=== PATIENT | male | born 1940 | race Caucasian/White ===

== ENCOUNTER 2016-12-28 09:33 | Emergency (ER) | payer MEDICARE, OTHER ==
--- NOTE | 2016-12-28 09:55 | ED Physician Documentation ---
PD HPI CHEST PAIN - Stated complaint Stated Complaint: WEAKNESS/CHEST PRESSURE - Chief complaint Chief Complaint: Cardiac - History obtained from History obtained from: Patient - History of Present Illness Timing - onset: Yesterday Timing - onset during: Light activity Timing - duration: Days (08/08) Timing - details: Gradual onset, Still present, Waxing and waning Quality: Pressure, Tightness, Aching Location: Left chest Radiation: Left upper extremity Improved by: No: Rest Worsened by: Exertion. No: Inspiration, Movement Associated symptoms: Shortness of air, General Weakness, Other (sinus congestion for few days. Had been working in garden/yard and thought he was just sore.). No: Nausea, Vomiting, Palpitations, Cough Similar symptoms before: Has not had sx before Recently seen: Not recently seen Review of Systems Constitutional: denies: Fever, Chills Nose: reports: Congestion, Sinus pressure / pain Throat: denies: Sore throat Cardiac: reports: Chest pain / pressure. denies: Palpitations, Pedal edema, Calf pain Respiratory: reports: Dyspnea. denies: Cough, Wheezing GI: denies: Nausea, Vomiting, Diarrhea : denies: Dysuria, Frequency Musculoskeletal: denies: Joint swelling PD PAST MEDICAL HISTORY - Past Medical History Past Medical History: Yes Cardiovascular: Hypertension, High cholesterol Respiratory: None Neuro: None Endocrine/Autoimmune: None Psych: None Musculoskeletal: None - Past Surgical History Past Surgical History: Yes Ortho: Spine surgery - Present Medications Home Medications: Ambulatory Orders Medication Instructions Recorded Confirmed Fluticasone [Flonase] 1 spray FISH DAILY PRN 03/12/16 12/28/16 Lisinopril 10 mg PO DAILY 03/12/16 12/28/16 - Allergies Allergies/Adverse Reactions: Allergies Allergy/AdvReac Type Severity Reaction Status Date / Time No Known Drug Allergies Allergy Verified 12/28/16 09:50 - Social History Does the pt smoke?: No Smoking Status: Never smoker Does the pt drink ETOH?: Yes Does the pt have substance abuse?: No - Family History Family history: reports: Non contributory - Immunizations Immunizations are current?: Yes PD ED PE NORMAL - Vitals Vital signs reviewed: Yes - General General: Alert and oriented X 3, Well developed/nourished - HEENT HEENT: Ears normal, Pharynx benign - Neck Neck: Supple, no meningeal sign, No adenopathy - Cardiac Cardiac: RRR, No murmur - Respiratory Respiratory: Clear bilaterally, Other (no chestwall tenderness) - Abdomen Abdomen: Normal bowel sounds, Soft, Non tender, Non distended, No organomegaly - Male Male : Deferred - Rectal Rectal: Deferred - Back Back: No CVA TTP - Derm Derm: Normal color, Warm and dry - Extremities Extremities: No deformity, No edema, No calf tenderness / cord - Neuro Neuro: Alert and oriented X 3, No motor deficit, Normal speech - Psych Psych: Normal mood, Normal affect Results - Vitals Vitals: Vital Signs - 24 hr 12/28/16 12/28/16 12/28/16 09:35 10:51 11:33 Temperature 36.3 C L Heart Rate 74 70 83 Respiratory 18 20 18 Rate Blood Pressure 181/93 H 164/90 H 172/95 H O2 Saturation 96 95 100 12/28/16 12/28/16 11:39 11:45 Temperature Heart Rate 76 64 Respiratory 18 18 Rate Blood Pressure 186/98 H 162/95 H O2 Saturation 96 98 Oxygen O2 Source Room air - EKG (time done) 09:45 Rate: Rate (enter#) (70) Rhythm: NSR [place]: Normal Intervals: Normal [place] Ischemia: Non specific changes. No: ST depression Compare to prior EKG: Old EKG unavailable - Labs Labs: Laboratory Tests 12/28/16 12/28/16 12/28/16 10:45 10:45 10:45 WBC 13.4 H RBC 5.30 Hgb 16.1 Hct 46.2 MCV 87.1 MCH 30.5 MCHC 35.0 RDW 13.8 Plt Count 183 MPV 8.5 Neut # 11.4 H Lymph # 1.1 L Gibson # 0.8 Eos # 0.0 Baso # 0.0 Absolute Nucleated RBC 0.00 Nucleated RBCs 0.0 Sodium 137 Potassium 4.0 Chloride 102 Carbon Dioxide 26 Anion Gap 9.0 BUN 17 Creatinine 1.0 Estimated GFR (MDRD) 72 L Glucose 156 H Calcium 9.7 Magnesium 2.2 Total Bilirubin 1.4 H AST 118 H ALT 33 Alkaline Phosphatase 67 Troponin I 12.86 H* B-Natriuretic Peptide Total Protein 7.8 Albumin 4.4 Globulin 3.4 Albumin/Globulin Ratio 1.3 Lipase 33 12/28/16 10:45 WBC RBC Hgb Hct MCV MCH MCHC RDW Plt Count MPV Neut # Lymph # Gibson # Eos # Baso # Absolute Nucleated RBC Nucleated RBCs Sodium Potassium Chloride Carbon Dioxide Anion Gap BUN Creatinine Estimated GFR (MDRD) Glucose Calcium Magnesium Total Bilirubin AST ALT Alkaline Phosphatase Troponin I B-Natriuretic Peptide 169 H Total Protein Albumin Globulin Albumin/Globulin Ratio Lipase PD MEDICAL DECISION MAKING - ED course Complexity details: reviewed results, re-evaluated patient, considered differential, d/w patient, d/w production support consultant (Dr. Jones, Cardiology, who will cath patient later today. Refers to Hospitalist. ) Departure - Departure Disposition: 02 Transfer Acute Care Hosp Clinical Impression: Chest pain Qualifiers: Chest pain type: precordial pain Qualified Code(s): R07.2 - Precordial pain Myocardial infarction acute Qualifiers: Myocardial infarction ST status: non-ST elevation myocardial infarction Qualified Code(s): I21.4 - Non-ST elevation (NSTEMI) myocardial infarction Condition: Stable Record reviewed to determine appropriate education?: Yes
[2016-12-28 10:53] LABS: BASOPHILS % (AUTO) 0.3 %; EOSINOPHILS % (AUTO) 0.2 %; HCT - HEMATOCRIT 46.2 % (42.0-52.0); HGB - HEMOGLOBIN 16.1 g/dL (14.0-18.0); LYMPHOCYTES # (AUTO) 1.1 10^3/uL (1.5-3.5); LYMPHOCYTES % (AUTO) 8.4 %; MEAN CORPUSCULAR HEMOGLOBIN 30.5 pg (27.0-31.0); MEAN CORPUSCULAR VOLUME 87.1 fL (80.0-94.0); MEAN PLATELET VOLUME 8.5 fL (7.4-11.4); MONOCYTES # (AUTO) 0.8 10^3/uL (0.0-1.0); MONOCYTES % (AUTO) 5.8 %; NEUTROPHILS # (AUTO) 11.4 10^3/uL (1.5-6.6); NEUTROPHILS % (AUTO) 85.3 %; RED CELL DISTRIBUTION WIDTH 13.8 % (12.0-15.0); UNCORRECTED WHITE BLOOD COUNT 13.4 x10^3/uL; WHITE BLOOD COUNT 13.4 x10^3/uL (4.8-10.8)
[2016-12-28 11:07] LABS: ALBUMIN/GLOBULIN RATIO 1.3 (1.0-2.2); BILIRUBIN,TOTAL 1.4 mg/dL (0.2-1.0); CALCIUM 9.7 mg/dL (8.5-10.3); MAGNESIUM 2.2 mg/dL (1.7-2.8); TOTAL PROTEIN 7.8 g/dL (6.7-8.2)
[2016-12-28] MEDS ORDERED: CLOPIDOGREL 300 MG TABLET PO STA (11:22)
[2016-12-28] MEDS ORDERED: METOPROLOL 5 MG/5 ML VIAL IVP STA (11:22)
[2016-12-28] MEDS ORDERED: ASPIRIN CHEW 81 MG TABLET PO STA (11:23)
[2016-12-28] MEDS ORDERED: ASPIRIN CHEW 81 MG TABLET ONE (11:26)
[2016-12-28] MEDS ORDERED: METOPROLOL 5 MG/5 ML VIAL IVP ONE (11:28)
[2016-12-28] MEDS ORDERED: CLOPIDOGREL 300 MG TABLET PO ONE (11:28)
--- NOTE | 2016-12-28 11:38 | XRAY Preliminary Report ---
Exam: XR Chest 2 View PA/LAT IMPRESSION: Normal 2-view chest radiography. [facility] SITE ID: [id number]
--- NOTE | 2016-12-28 11:41 | XRAY Report ---
EXAM: CHEST RADIOGRAPHY EXAM DATE: 12/28/2016 10:36 AM. CLINICAL HISTORY: Left chest pressure, mild cough. Intermittent shortness of breath. COMPARISON: None. TECHNIQUE: 2 views. FINDINGS: Lungs/Pleura: No focal opacities evident. No pleural effusion. No pneumothorax. Normal volumes. Mediastinum: Heart and mediastinal contours are unremarkable. Other: None. IMPRESSION: Normal 2-view chest radiography. [facility] Referring Provider Line: [phone] SITE ID: [id number]
[2016-12-28] MEDS ORDERED: ATORVASTATIN 40 MG TABLET PO STA (11:48)
[2016-12-28] MEDS ORDERED: HEPARIN 25,000 UNITS/500 ML 500 ML IV STA (11:49)
[2016-12-28] MEDS ORDERED: HEPARIN 5,000 UNIT/ML VIAL IVP STA (11:49)
[2016-12-28] MEDS ORDERED: HEPARIN 5,000 UNIT/ML VIAL ONE (11:52)
[2016-12-28] MEDS ORDERED: HEPARIN 25,000 UNITS/500 ML 500 ML IV ONE (11:52)
[2016-12-28 13:50] VITALS: BP 156/87
== END 2016-12-28 14:10 | disposition short-term general hospital (02) ==
LOC: ED 09:33
DX: I21.4 Non-ST elevation (NSTEMI) myocardial infarction (principal); R07.2 Precordial pain; I10 Essential (primary) hypertension; E78.00 Pure hypercholesterolemia, unspecified
CPT/HCPCS: 36415; 71020; 80053; 83690; 83735; 83880; 84484; 85025; 93005; 93010; 96365; 96366; 96375; 96376; 99284; A9270

== ENCOUNTER 2016-12-28 14:10 | Outpatient (CLI) | payer MEDICARE, OTHER | END 2016-12-28 14:11 | disposition short-term general hospital (02) | LOC: EMS 14:10 | PROVIDERS: ATTEND Surgery | DX: R07.9 Chest pain, unspecified (principal) | CPT/HCPCS: A0425; A0426 ==

== ENCOUNTER 2018-10-09 07:45 | Outpatient (CLI) | payer MEDICARE, OTHER ==
[2018-10-09 14:36] LABS: BASOPHILS % (AUTO) 0.4 %; EOSINOPHILS # (AUTO) 0.1 10^3/uL (0.0-0.7); EOSINOPHILS % (AUTO) 1.9 %; HGB - HEMOGLOBIN 12.9 g/dL (14.0-18.0); LYMPHOCYTES # (AUTO) 1.4 10^3/uL (1.5-3.5); LYMPHOCYTES % (AUTO) 20.6 %; MEAN CORPUSCULAR HEMOGLOBIN 26.7 pg (27.0-31.0); MEAN CORPUSCULAR VOLUME 80.9 fL (80.0-94.0); MONOCYTES # (AUTO) 0.8 10^3/uL (0.0-1.0); MONOCYTES % (AUTO) 11.1 %; NEUTROPHILS # (AUTO) 4.6 10^3/uL (1.5-6.6); PLT - PLATELET COUNT 158 10^3/uL (130-450); RED BLOOD COUNT 4.81 10^6/uL (4.70-6.10); RED CELL DISTRIBUTION WIDTH 15.9 % (12.0-15.0)
[2018-10-09 16:48] LABS: ALBUMIN/GLOBULIN RATIO 1.3 (1.0-2.2); ALKALINE PHOSPHATASE 63 IU/L (42-121); ALT ALANINE AMINOTRANSFERASE 26 IU/L (10-60); AST ASPARTATE AMINOTRANSFERASE 29 IU/L (10-42); BILIRUBIN,TOTAL 1.6 mg/dL (0.2-1.0); BUN - BLOOD UREA NITROGEN 18 mg/dL (6-20); CALCIUM 9.3 mg/dL (8.5-10.3); CARBON DIOXIDE - CO2 28 mmol/L (21-32); CHLORIDE 105 mmol/L (101-111); CHOL/HDL RATIO 2.7 (<5.0); CHOLESTEROL 72 mg/dL; CREATININE 1.1 mg/dL (0.6-1.2); GFR - MDRD 65 (>89); GLUCOSE 96 mg/dL (70-100); HDL CHOLESTEROL 27 mg/dL; LDL CHOLESTEROL,CALCULATED 26 mg/dL; SODIUM 139 mmol/L (135-145); TOTAL PROTEIN 7.1 g/dL (6.7-8.2); VLDL CHOLESTEROL 19 mg/dL
== END 2018-10-09 07:46 | disposition home or self-care (01) ==
LOC: LAB.WCP 07:45
PROVIDERS: ATTEND Family Medicine
DX: I10 Essential (primary) hypertension (principal)
CPT/HCPCS: 36415; 80053; 80061; 83721; 84443; 85025

== ENCOUNTER 2019-10-10 08:35 | Day surgery (SDC) | payer MEDICARE, OTHER ==
[~2019-10-10 08:35] MED LIST: BRIMONIDINE 0.2% OPHTH DROPS 5 ML ONE; BSS/LIDOCAINE/EPINEPHRINE 1 ML SYRINGE ONE; CYCLOPENTOLATE 1% OPHTH DROPS 2 ML ONE; KETOROLAC 0.45% OPHTH DROPS ONE; PHENYLEPHRINE 2.5% OPHTH 2 ML DROPS ONE; PROPARACAINE 0.5% OPHTH DROPS 15 ML ONE; TRIAMCIN/MOXIFLOX OPHTHALMIC 0.6 ML VIAL IO ONE; VANCOMYCIN OPHTHALMI 8MG/0.8ML 8 MG/0.8 ML SYRINGE IO ONE; timoloL maleate 0.5% OPHTH DROPS (10ML) ONE
[2019-10-10] MEDS ORDERED: MIDAZOLAM 2 MG/2 ML VIAL IVP ONE (08:36)
[2019-10-10] MEDS ORDERED: CYCLOPENTOLATE 1% OPHTH DROPS 2 ML RIGHTEYE ONE (09:00)
[2019-10-10] MEDS ORDERED: PROPARACAINE 0.5% OPHTH DROPS 15 ML RIGHTEYE ONE ×2 (09:00→10:20)
[2019-10-10] MEDS ORDERED: KETOROLAC 0.45% OPHTH DROPS RIGHTEYE ONE (09:00)
[2019-10-10] MEDS ORDERED: PHENYLEPHRINE 2.5% OPHTH 2 ML DROPS RIGHTEYE ONE (09:00)
[2019-10-10] MEDS ORDERED: LACTATED RINGERS 500 ML IV ONE (09:11)
--- NOTE | 2019-10-10 09:23 | ANESTHESIA ---
Pre-Anesthesia VS, & Labs - Diagnosis right eye cataract - Procedure right eye cataract removal Vital Signs: Temp Pulse Resp BP Pulse Ox 36.2 C L 58 L 16 156/70 H 100 10/10/19 08:50 10/10/19 08:50 10/10/19 08:50 10/10/19 08:50 10/10/19 08:50 Height 6 ft Weight (kg) 106 kg Body Mass Index 31.1 Home Medications and Allergies Home Medications: Ambulatory Orders Aspirin [Children's Aspirin] 81 mg PO DAILY 10/09/19 Atorvastatin [Lipitor] 10 mg PO DAILY 10/09/19 Carvedilol 12.5 mg PO DAILY 10/09/19 Tamsulosin [Flomax] 0.4 mg PO DAILY 10/09/19 Fluticasone [Flonase] 1 spray FISH DAILY PRN 03/12/16 lisinopriL [Lisinopril] 40 mg PO DAILY 03/12/16 Aspirin [Children's Aspirin] 81 mg PO DAILY 10/09/19 Atorvastatin [Lipitor] 10 mg PO DAILY 10/09/19 Carvedilol 12.5 mg PO DAILY 10/09/19 Tamsulosin [Flomax] 0.4 mg PO DAILY 10/09/19 Allergies/Adverse Reactions: Allergies Allergy/AdvReac Type Severity Reaction Status Date / Time No Known Drug Allergies Allergy Verified 12/28/16 09:50 Anes History & Medical History - Anesthetic History Anesthesia Complications: reports: No previous complications Family history of Anesthesia Complications: Denies Family history of Malignant Hyperthermia: Denies - Medical History Cardiovascular: reports: Hypertension, High cholesterol, [place] (mild heart attack 3 years ago.) Pulmonary: reports: Sleep apnea, CPAP use Gastrointestinal: reports: None Urinary: reports: Benign prostate hypertrophy Neuro: reports: None Musculoskeletal: reports: Osteoarthritis Endocrine/Autoimmune: reports: None Blood Disorders: reports: None Skin: reports: Other Smoking Status: Never smoker Psychosocial: reports: No issues indicated, Alcohol (occassional) - Surgical History Orthopedic: Spine surgery Exam General: Alert, Oriented x3, Cooperative, No acute distress Dental: WNL Mouth Openin Fingerbreadth Mallampati classification: II Thyromental Distance: 4-6 cm Respiratory: Lungs clear, Normal breath sounds, No respiratory distress, No accessory muscle use Cardiovascular: Regular rate, Normal S1, Normal S2, No murmurs Abdomen: Normal bowel sounds, Soft, No tenderness, No hepatospenomegaly, No masses Extremities: No clubbing, No cyanosis, No edema, Normal pulses, No tenderness/swelling Neurological: Normal gait, Normal speech, Strength at 5/5 X4 ext, Normal tone, Sensation intact, Cranial nerves 3-12 NL, Reflexes 2+ Mental/Cognitive Status: Alert/Oriented X3, Normal for patient Cognitive Status: Within normal limits Plan Anesthesia Type: MAC Consent for Procedure(s) Verified and Reviewed: Yes Code Status: Attempt Resuscitation ASA classification: 3-Severe systemic disease Is this case an emergency?: No
[2019-10-10] MEDS ORDERED: BRIMONIDINE 0.2% OPHTH DROPS 5 ML OPTH ONE (10:19)
[2019-10-10] MEDS ORDERED: EPINEPHrine 1 MG/ML AMP IVP ONE (10:19)
[2019-10-10] MEDS ORDERED: TIMOLOL 0.5% OPHTH DROPS OPTH ONE (10:20)
[2019-10-10] MEDS ORDERED: BSS/LIDOCAINE/EPINEPHRINE 1 ML SYRINGE IO ONE (10:20)
[2019-10-10] MEDS ORDERED: CHONDR SULF/HYALURONATE SYRINGE IO ONE (10:20)
[2019-10-10] MEDS ORDERED: TRIAMCIN/MOXIFLOX OPHTHALMIC 0.6 ML VIAL IO ONE (10:21)
[2019-10-10] MEDS ORDERED: VANCOMYCIN OPHTHALMI 8MG/0.8ML 8 MG/0.8 ML SYRINGE IO ONE (10:21)
[2019-10-10 11:02] VITALS: BP 138/66
--- NOTE | 2019-10-10 11:49 | OPERATIVE REPORT ---
DATE OF SERVICE: 10/10/2019 Physician: Bony Mccullough MD PREOPERATIVE DIAGNOSIS: Visually significant cataract, right eye. This was his first cataract surgery. POSTOPERATIVE DIAGNOSIS: Visually significant cataract, right eye. This was his first cataract surgery. DESCRIPTION OF PROCEDURE: Phacoemulsification with posterior chamber intraocular lens implant, right eye. SURGEON: Bony Mccullough MD ANESTHESIA: Monitored anesthesia care. COMPLICATIONS: None. OPERATIVE INDICATIONS: This is an 78-year-old man with progressive vision loss in the right eye due to 3-4+ nuclear sclerotic cataract. Best corrected visual acuity was 20/30, with glare to 20/630. Indications for surgery are overall decrease in vision, difficulty driving in low light or at night, difficulty driving at night because of headlights from other vehicles, and difficulty with glare or bright lights in any situation. He was consented at length concerning risks and benefits of cataract surgery, after which he expressed a desire to proceed with surgery. OPERATIVE PROCEDURE: The patient was taken to OR #3 and placed under monitored anesthesia care. A surgical timeout was conducted confirming correct patient, correct procedure, and correct surgical site. He was given topical anesthesia, and prepped and draped in the usual sterile fashion. The eye was entered at the 12 and 9 o'clock positions. Intracameral Shugarcaine was injected into the anterior chamber, followed by Viscoat. A continuous-tear curvilinear capsulorrhexis was performed. The nucleus was hydrodissected and phacoemulsified. The cortex was evacuated using automated infusion and aspiration; however, there was some rather thick and rather sticky inferior cortex, which I had a lot of difficulty pulling off the capsule. I actually switched back to phaco to try to remove some of that cortex, which I did, and then back to Infusion and Aspiration. Provisc was injected in the capsular bag and a 26.0 diopter intraocular lens inserted in the bag. However, once the IOL was in the bag, it seemed to keep wanting to tilt nasally, not inferiorly, and after a couple times manipulating the IOL I noticed that there was a rather large nasal loss of the posterior capsule with the capsule edge sort of running superior to inferior through the middle of the capsule. The IOL looked like it could still find purchase, so I rotated it about 90 degrees until I found purchase for the haptics. The lens did center and did appear to be stable, not tilting, and there was no vitreous that I could see coming to the wound or in to the anterior chamber. I decided to leave the IOL in placeas rather than put the eye through the trauma of cutting the IOL out and inserting a sulcus IOL. Infusion and Aspiration was used to evacuate the viscoelastic material from the anterior chamber. Again, no vitreous presented. The eye was inflated to physiologic pressure using balanced salt solution and found to be watertight. Approximately 0.25 mL of a mixture of triamcinolone, moxifloxacin was injected transsclerally into the vitreous in the inferotemporal quadrant. An additional 0.55 mL of a mixture of triamcinolone, moxifloxacin and vancomycin was injected subconjunctivally in the superior quadrant for infection and inflammation prophylaxis. Wound integrity was checked with Weck-Sheila sponges. The patient was taken from the operating room in good condition and given postoperative instructions. I did inform him of the possibility of an unstable IOL in his eye, what that might mean (more surgery), and he understood. TD: 10/10/2019 10:52 DAVID
== END 2019-10-10 08:36 | disposition home or self-care (01) ==
LOC: SDS 08:35
PROVIDERS: ATTEND Ophthalmology
PROC: 08RJ3JZ Replacement of Right Lens with Synthetic Substitute, Percutaneous Approach (ICD-10-PCS; principal; 2019-10-10 10:30)
DX: H25.11 Age-related nuclear cataract, right eye (principal); I10 Essential (primary) hypertension; G47.33 Obstructive sleep apnea (adult) (pediatric); I25.2 Old myocardial infarction; Z79.82 Long term (current) use of aspirin; N40.0 Benign prostatic hyperplasia without lower urinary tract symptoms
CPT/HCPCS: 66984; A9270; J3490; V2632

== ENCOUNTER 2020-07-01 08:00 | Outpatient (CLI) | payer MEDICARE, OTHER ==
[2020-07-01 12:19] LABS: BASOPHILS % (AUTO) 0.5 %; EOSINOPHILS # (AUTO) 0.1 10^3/uL (0.0-0.7); EOSINOPHILS % (AUTO) 2.2 %; HGB - HEMOGLOBIN 14.6 g/dL (14.0-18.0); LYMPHOCYTES # (AUTO) 1.5 10^3/uL (1.5-3.5); LYMPHOCYTES % (AUTO) 24.7 %; MEAN CORPUSCULAR HEMOGLOBIN 29.8 pg (27.0-31.0); MEAN CORPUSCULAR HGB CONC 33.1 g/dL (32.0-36.0); MONOCYTES # (AUTO) 0.6 10^3/uL (0.0-1.0); MONOCYTES % (AUTO) 10.4 %; NEUTROPHILS # (AUTO) 3.7 10^3/uL (1.5-6.6); NEUTROPHILS % (AUTO) 61.9 %; PLT - PLATELET COUNT 152 10^3/uL (130-450); RED CELL DISTRIBUTION WIDTH 13.6 % (12.0-15.0)
[2020-07-01 12:44] LABS: ALBUMIN 3.8 g/dL (3.2-5.5); ALBUMIN/GLOBULIN RATIO 1.2 (1.0-2.2); ALKALINE PHOSPHATASE 60 IU/L (42-121); ALT ALANINE AMINOTRANSFERASE 23 IU/L (10-60); AST ASPARTATE AMINOTRANSFERASE 25 IU/L (10-42); BILIRUBIN,TOTAL 1.1 mg/dL (0.2-1.0); BUN - BLOOD UREA NITROGEN 15 mg/dL (6-20); CALCIUM 9.4 mg/dL (8.5-10.3); CARBON DIOXIDE - CO2 23 mmol/L (21-32); CHLORIDE 110 mmol/L (101-111); CHOL/HDL RATIO 2.7 (<5.0); CHOLESTEROL 70 mg/dL; CREATININE 1.1 mg/dL (0.6-1.2); GLUCOSE 103 mg/dL (70-100); HDL CHOLESTEROL 26 mg/dL; LDL CHOLESTEROL,CALCULATED 24 mg/dL; LDL/HDL RATIO 0.9 (<3.6); SODIUM 138 mmol/L (135-145); TOTAL PROTEIN 7.1 g/dL (6.7-8.2); VLDL CHOLESTEROL 20 mg/dL
== END 2020-07-01 23:59 | disposition home or self-care (01) ==
LOC: LAB.WCP 08:00
PROVIDERS: ATTEND Internal Medicine
DX: I25.10 Atherosclerotic heart disease of native coronary artery without angina pectoris (principal); I10 Essential (primary) hypertension
CPT/HCPCS: 36415; 80053; 80061; 83721; 84443; 85025

== ENCOUNTER 2020-07-13 08:54 | Outpatient (CLI) | payer MEDICARE, OTHER ==
--- NOTE | 2020-07-13 10:54 | SLEEP CARE CONSULTATION ---
Information from patient questionnaire entered by Zaira Mckenna. I have reviewed and concur with the information entered by Zaira Mckenna. This document represents the service I personally performed and the decisions made by me, Chuckie Samuel MD, [facility]. History of Present Illness Service Date and Time: 07/13/2020 0854 Reason for Visit: New patient Chief Complaint: reports: Snoring Date of Onset: 15+ years Usual bedtime: 7007-7247 Time it takes to fall asleep: 10 minutes Snores at night: Yes (when not on CPAP) Observed to quit breathing while asleep: No Sleeps alone due to snoring: No Number of times waking at night: 2-3 Reasons for waking at night: reports: Bathroom Toss, Turn, or Twitch while sleeping: Yes (not very often) Recalls having dreams: Yes Usually gets out of bed at: 2403-5027 Feels refreshed in the morning: Yes Morning headache: No Ever fallen asleep while driving: No Takes day naps: Yes (occasionally) Prior sleep studies: Yes Year and Where: [address] Redmond Type of Sleep Study: Polysomnography Additional HPI information: I had the pleasure of seeing Mr. Swift today regarding the possibility of him having a sleep disorder. As you know, he is a 79 year old gentleman who complains of snoring that has been present for the past 15 years. He had a sleep study in 2002 in [place] that showed moderate obstructive sleep apnea- hypopnea with an AHI of 21. He has been using a CPAP since. His current machine is a Respironics System One device set at 7 cmH2O. The compliance data show usage in 178 out of the past 180 nights, averaging 8.2 hours a night. The residual AHI is 2.6 and average air leak is minimal. He wears a full face mask. He reports significant improvement on the treatment. He does not snore at all according to his . [employer] is his durable medical supplier. Subjective Initial [place] Sleepiness Scale score: 6 (in 2019) Past Medical History Past Medical History: reports: Hypertension, Arthritis, Coronary Heart Disease, Impotence Social History The patient's occupation is retired. Patient is and lives in [place]. Have you smoked in the past 12 months: No Cigarettes per day (20/pack): 40 Years of smokin Quit date: 1971 Smoking Pack Years: 30.0 Alcohol use: Yes Alcohol amount and frequency: 1 martini/week, 1-2 beer/week Caffeine use: Yes Caffeine amount and frequency: 2 cups coffee Allergies and Home Medications Drug allergies reviewed: Yes Home medication list reviewed: Yes Review of Systems Weight gain over past 5 years: 10 Cardiovascular: reports: high blood pressure Respiratory: reports: chronic cough (*not chronic) Gastrointestinal: denies: heartburn, difficulty swallowing, nausea, vomitting, diarrhea, abdominal pain, other Urinary: reports: incontinence (occasionally), frequency, urgency, impotence Neurological: reports: gait or balance problems Psychiatric: denies: Attention Deficit Hyperactivity, anxiety, depression, mood disorder, claustrophobia, other Ear/Nose/Throat: reports: nasal congestion, sinus problems, tonsillectomy, wisdom teeth removed Endocrine: reports: increased appetite, increased urination Musculoskeletal: reports: joint pain, back pain, joint swelling, muscle pain or cramping, mobility problems Immunologic: reports: sneezing, itching Physical Exam Vital signs obtained and entered by: To minimize the risk of COVID-19 exposure, detailed exam was not performed. Height: 6 ft Weight: 235 lb Body Mass Index: 31.8 BMI Classification: Obese Impression and Plan IMPRESSION: 1. Obstructive Sleep Apnea-Hypopnea Syndrome, moderate, as previously diagnosed. He has used a CPAP for the past 16 years with good response. He is totally comfortable on the current machine. The current pressure setting appears effective. His mask fits well. Because his Respironics CPAP is now older than the useful life of 5 years, I will order the patient a new one and make it an autoCPAP set between 6 and 8 cmH2O. Plan: 1. Prescription made for an autoCPAP, heated humidifier, and related supplies. 2. Attempt to lose weight. 5. Return for follow up after one month on the new machine. Visit Type: In Office Time Spent with Patient (minutes): 15 Provider Statement: I spent 100% of the Face to Face Visit with the patient with greater than 50% spent counseling the patient and coordination of care.
== END 2020-07-13 08:55 | disposition home or self-care (01) ==
LOC: SC 08:54
PROVIDERS: ATTEND Internal Medicine Pulmonary Disease
DX: G47.33 Obstructive sleep apnea (adult) (pediatric) (principal); E66.9 Obesity, unspecified; Z68.31 Body mass index [BMI] 31.0-31.9, adult
CPT/HCPCS: 99203; G0463; 99212

== ENCOUNTER 2020-08-24 08:58 | Outpatient (CLI) | payer MEDICARE, OTHER ==
--- NOTE | 2020-08-24 12:48 | SLEEP CARE CONSULTATION ---
Information from patient questionnaire entered by Santa Omalley. I have reviewed and concur with the information entered by Santa Omalley. This document represents the service I personally performed and the decisions made by me, Chuckie Samuel MD, [facility]. History of Present Illness Service Date and Time: 08/24/2020 0858 Previous diagnosis: Moderate, Obstructive Sleep Apnea-Hypopnea Syndrome AHI: 21 (in 2003) Reason for follow up: first compliance after device update Equipment type: CPAP Equipment obtained from: [employer] Mask style: Nasal Mask brand: Respironics (Dreamwear) Prior sleep studies: Yes Year and Where: 2003 - [place] with Dr. Redmond Type of Sleep Study: Polysomnography HPI additional information: HPI: Mr. Swift was diagnosed to have moderate obstructive sleep apnea-hypopnea syndrome and returns today for follow up of CPAP therapy. The patient purchased the device from [employer] and was fitted with Respironics Dreamwear nasal pillows. He uses the device nightly and all through the night. The compliance report shows that he uses the device 29 nights out of the past 30 nights, averaging 8.6 hours a night. He complains of no particular problem with the device such as soreness on the face, dry nose, epistaxis, nasal congestion or headache. He thinks that the pressure of 6 - 8 cmH2O is comfortable. On the CPAP therapy he notices improvement in his sleep quality, and that he wakes up feeling fresher in the morning and more awake/alert during the day. His notices no snore at all. [place] Sleepiness Scale score is 7. The average residual AHI is 0.8; and average time in large leak per day is 0 minutes a night. The 90th percentile pressure is 7.9 cmH2O. CPAP Compliance Data - Data Reviewed with Patient Average duration of nightly device use: 8 hr 35 min Compliance rate %: 100 Current pressure setting (cmH2O): 6-8 Humidity settin Average residual AHI: 0.8 Subjective Initial [place] Sleepiness Scale score: 6 (in 2019) Current [place] Sleepiness Scale score: 7 Allergies and Home Medications Drug allergies reviewed: Yes Home medication list reviewed: Yes Review of Systems Review of systems same as previous: Yes Physical Exam Vital signs obtained and entered by: To minimize the risk of COVID-19 exposure, detailed exam was not performed. Height: 6 ft Weight: 235 lb Body Mass Index: 31.8 BMI Classification: Obese Nasal exam: positive: erythema Impression and Plan IMPRESSION: 1. Obstructive Sleep Apnea-Hypopnea Syndrome, moderate (AHI was 21 in 2002) with the patient continuing to do well on nasal CPAP therapy. He has excellent compliance and significant clinical benefits. The current pressure appears effective and comfortable. Overall, he is very satisfied with treatment and plans to continue with it long-term. Because the residual AHI is very low, I will lower the pressure range to 5 7 cmH2O. PLAN: 1. Lowered AutoCPAP to 5 - 7 cm H2O via the modem. 2. Try to lose weight 3. Return in one year for follow up or earlier if there is any problem with the treatment. Visit Type: In Office Time Spent with Patient (minutes): 20 Provider Statement: I spent 100% of the Face to Face Visit with the patient with greater than 50% spent counseling the patient and coordination of care.
== END 2020-08-24 08:59 | disposition home or self-care (01) ==
LOC: SC 08:58
PROVIDERS: ATTEND Internal Medicine Pulmonary Disease
DX: G47.33 Obstructive sleep apnea (adult) (pediatric) (principal); E66.9 Obesity, unspecified; Z68.31 Body mass index [BMI] 31.0-31.9, adult
CPT/HCPCS: 99213; G0463; 99212

== ENCOUNTER 2020-11-16 08:52 | Outpatient (CLI) | payer MEDICARE ==
--- NOTE | 2020-11-16 10:00 | SLEEP CARE CONSULTATION ---
Information from patient questionnaire entered by Santa Omalley. I have reviewed and concur with the information entered by Santa Omalley. This document represents the service I personally performed and the decisions made by me, Chuckie Samuel MD, [facility]. History of Present Illness Service Date and Time: 11/16/2020 0852 Previous diagnosis: Moderate, Obstructive Sleep Apnea-Hypopnea Syndrome AHI: 21 (in 2003) Reason for follow up: first compliance after device update (due to insurance change) Equipment type: CPAP Equipment obtained from: [employer] Mask style: Nasal Mask brand: Respironics (Dreamwear) Prior sleep studies: Yes Year and Where: 2003 - [place] with Dr. Redmond Type of Sleep Study: Polysomnography HPI additional information: HPI: Mr. Swift was diagnosed to have moderate obstructive sleep apnea-hypopnea syndrome and returns today for annual follow up of CPAP therapy. The patient gets his supplies from [employer]. He wears a Respironics DreamWear nasal cushion mask. He uses the device nightly and all through the night. The compliance report shows that he uses the device 30 nights out of the past 30 nights, averaging 8.2 hours a night. He complains of no particular problem with the device such as soreness on the face, dry nose, epistaxis, nasal congestion or headache. He thinks that the pressure of 5 - 7 cmH2O is comfortable. On the CPAP therapy he notices improvement in his sleep quality, and that he wakes up feeling fresher in the morning and more awake/alert during the day. His notices no snore at all. [place] Sleepiness Scale score is 6. The average residual AHI is 1.1; and average time in large leak per day is 0 minutes a night. The 90th percentile pressure is 7 cmH2O. CPAP Compliance Data - Data Reviewed with Patient Average duration of nightly device use: 8 hr 12 min Compliance rate %: 100 Current pressure setting (cmH2O): 5-7 Humidity settin Average residual AHI: 1.1 Subjective Current pressure setting perceived as: comfortable Initial [place] Sleepiness Scale score: 6 (in 2019) Current [place] Sleepiness Scale score: 6 Allergies and Home Medications Drug allergies reviewed: Yes Home medication list reviewed: Yes Review of Systems Review of systems same as previous: Yes Physical Exam Height: 6 ft Weight: 237 lb Body Mass Index: 32.1 BMI Classification: Obese Impression and Plan IMPRESSION: 1. Obstructive Sleep Apnea-Hypopnea Syndrome, moderate (AHI was 21) with the patient continuing to do well on nasal CPAP therapy. He has excellent compliance and significant clinical benefits. The current pressure appears effective and comfortable. Overall, he is very satisfied with treatment and plans to continue with it long-term. No adjustment is necessary today. PLAN: 1. Continue with autoCPAP set at 5 - 7 cm H2O. 2. Try to lose weight 3. Return in one year for follow up or earlier if there is any problem with the treatment. Follow up recommended for: Weight management Visit Type: In Office Time Spent with Patient (minutes): 15 Provider Statement: I spent 100% of the Face to Face Visit with the patient with greater than 50% spent counseling the patient and coordination of care.
== END 2020-11-16 08:53 | disposition home or self-care (01) ==
LOC: SC 08:52
PROVIDERS: ATTEND Internal Medicine Pulmonary Disease
DX: G47.33 Obstructive sleep apnea (adult) (pediatric) (principal); E66.9 Obesity, unspecified; Z68.32 Body mass index [BMI] 32.0-32.9, adult
CPT/HCPCS: 99212; G0463

== ENCOUNTER 2021-08-13 08:00 | Outpatient (CLI) | payer MEDICARE ==
[2021-08-13 13:00] LABS: BASOPHILS % (AUTO) 0.4 %; EOSINOPHILS # (AUTO) 0.1 10^3/uL (0.0-0.7); EOSINOPHILS % (AUTO) 1.5 %; HCT - HEMATOCRIT 45.1 % (42.0-52.0); LYMPHOCYTES # (AUTO) 1.6 10^3/uL (1.5-3.5); LYMPHOCYTES % (AUTO) 21.4 %; MEAN CORPUSCULAR HEMOGLOBIN 29.1 pg (27.0-31.0); MEAN CORPUSCULAR HGB CONC 33.3 g/dL (32.0-36.0); MEAN CORPUSCULAR VOLUME 87.6 fL (80.0-94.0); MEAN PLATELET VOLUME 10.8 fL (7.4-11.4); MONOCYTES # (AUTO) 0.7 10^3/uL (0.0-1.0); MONOCYTES % (AUTO) 8.7 %; NEUTROPHILS # (AUTO) 5.1 10^3/uL (1.5-6.6); NEUTROPHILS % (AUTO) 67.2 %; PLT - PLATELET COUNT 165 10^3/uL (130-450); RED BLOOD COUNT 5.15 10^6/uL (4.70-6.10); RED CELL DISTRIBUTION WIDTH 13.3 % (12.0-15.0); WHITE BLOOD COUNT 7.6 x10^3/uL (4.8-10.8)
[2021-08-13 13:25] LABS: ALBUMIN/GLOBULIN RATIO 1.3 (1.0-2.2); ALKALINE PHOSPHATASE 63 IU/L (42-121); ALT ALANINE AMINOTRANSFERASE 23 IU/L (10-60); AST ASPARTATE AMINOTRANSFERASE 23 IU/L (10-42); BILIRUBIN,TOTAL 1.3 mg/dL (0.2-1.0); BUN - BLOOD UREA NITROGEN 15 mg/dL (6-20); CALCIUM 9.7 mg/dL (8.5-10.3); CARBON DIOXIDE - CO2 24 mmol/L (21-32); CHLORIDE 107 mmol/L (101-111); CHOLESTEROL 79 mg/dL; CREATININE 1.1 mg/dL (0.6-1.2); GFR - MDRD 64 (>89); GLUCOSE 111 mg/dL (70-100); HDL CHOLESTEROL 26 mg/dL; LDL CHOLESTEROL,CALCULATED 30 mg/dL; LDL/HDL RATIO 1.2 (<3.6); POTASSIUM 4.3 mmol/L (3.5-5.0); SODIUM 139 mmol/L (135-145); TRIGLYCERIDES 113 mg/dL; VLDL CHOLESTEROL 23 mg/dL
[2021-08-13 13:33] LABS: THYROID STIMULATING HORMONE 2.82 uIU/mL (0.34-5.60)
[2021-08-13 13:37] LABS: CREATININE,URINE 78.3 mg/dL; MICROALBUM/CREATININE RATIO,UR 3.8 ug/mg (<30.0); MICROALBUMIN,URINE 0.3 mg/dL (0-300.0)
[2021-08-13 13:40] LABS: ESTIMATED AVERAGE GLUCOSE 120 mg/dL (70-100); HEMOGLOBIN A1c% 5.8 % (4.27-6.07)
== END 2021-08-13 23:59 ==
LOC: LAB.WCP 08:00
PROVIDERS: ATTEND Internal Medicine
DX: I12.9 Hypertensive chronic kidney disease with stage 1 through stage 4 chronic kidney disease, or unspecified chronic kidney disease (principal); I25.10 Atherosclerotic heart disease of native coronary artery without angina pectoris; N18.30 Chronic kidney disease, stage 3 unspecified; R73.01 Impaired fasting glucose
CPT/HCPCS: 36415; 80053; 80061; 82043; 82570; 83036; 83721; 84443; 85025

== ENCOUNTER 2022-09-08 07:53 | Day surgery (SDC) | payer MEDICARE ==
[~2022-09-08 07:53] MED LIST changes: -BRIMONIDINE 0.2% OPHTH DROPS 5 ML ONE; -BSS/LIDOCAINE/EPINEPHRINE 1 ML SYRINGE ONE; -TRIAMCIN/MOXIFLOX OPHTHALMIC 0.6 ML VIAL IO ONE; -VANCOMYCIN OPHTHALMI 8MG/0.8ML 8 MG/0.8 ML SYRINGE IO ONE; -timoloL maleate 0.5% OPHTH DROPS (10ML) ONE
[2022-09-08] MEDS ORDERED: LACTATED RINGERS 1,000 ML IV ONE ×2 (07:59→10:25)
[2022-09-08] MEDS ORDERED: TRIAMCIN/MOXIFLOX OPHTHALMIC 0.6 ML VIAL IO ONE ×2 (08:48→09:03)
[2022-09-08] MEDS ORDERED: BSS/LIDOCAINE/EPINEPHRINE 1 ML SYRINGE ONE (08:49)
[2022-09-08] MEDS ORDERED: VANCOMYCIN OPHTH (TOPICAL) 10 MG/ML SYRINGE ONE (08:49)
[2022-09-08] MEDS ORDERED: BRIMONIDINE 0.2% OPHTH DROPS 5 ML ONE (08:49)
[2022-09-08] MEDS ORDERED: EPINEPHrine 1 MG/ML AMP ONE (08:49)
[2022-09-08] MEDS ORDERED: TIMOLOL 0.5% OPHTH DROPS ONE (08:49)
--- NOTE | 2022-09-08 08:49 | ANESTHESIA ---
Pre-Anesthesia VS, & Labs - Diagnosis nuclear cataract left eye - Procedure left cataract extraction with IOL Vital Signs: Temp Pulse Resp BP Pulse Ox O2 Flow Rate 36.5 C 69 13 130/70 98 0 09/08/22 08:10 09/08/22 08:10 09/08/22 08:10 09/08/22 08:10 09/08/22 08:10 09/08/22 08:10 Height: 6 ft Weight (kg): 109 kg Body Mass Index: 32.5 BMI Classification: Obese - NPO >8 hours Home Medications and Allergies Fluticasone [Flonase] 1 spray FISH DAILY PRN 03/12/16 lisinopriL [Lisinopril] 40 mg PO DAILY 03/12/16 Aspirin [Children's Aspirin] 81 mg PO DAILY 10/09/19 Atorvastatin [Lipitor] 10 mg PO DAILY 10/09/19 Carvedilol 12.5 mg PO DAILY 10/09/19 Tamsulosin [Flomax] 0.4 mg PO DAILY 10/09/19 Allergies/Adverse Reactions: Allergies Allergy/AdvReac Type Severity Reaction Status Date / Time No Known Drug Allergies Allergy Verified 12/28/16 09:50 Anes History & Medical History - Anesthetic History Anesthesia Complications: reports: No previous complications - Medical History Cardiovascular: reports: Hypertension, High cholesterol, SD Pulmonary: reports: Sleep apnea, CPAP use Gastrointestinal: reports: None Urinary: reports: Benign prostate hypertrophy Neuro: reports: None Musculoskeletal: reports: Osteoarthritis Endocrine/Autoimmune: reports: None Blood Disorders: reports: None Skin: reports: Other Smoking Status: Never smoker - Surgical History Eyes Ears Nose Throat (EENT): reports: Cataracts Orthopedic: reports: Spine surgery Exam General: Alert, Oriented x3 Dental: WNL Mouth Opening: Greater than 4 Fingerbreadths Neck Mobility: Normal Mallampati classification: II Thyromental Distance: greater than 6 cm Respiratory: Lungs clear Cardiovascular: Regular rate Plan Anesthesia Type: MAC Consent for Procedure(s) Verified and Reviewed: Yes Code Status: Attempt Resuscitation ASA classification: 3-Severe systemic disease Is this case an emergency?: Yes
[2022-09-08] MEDS ORDERED: MIDAZOLAM 2 MG/2 ML VIAL ONE ×2 (08:56→09:00)
[2022-09-08] MEDS ORDERED: BRIMONIDINE 0.2% OPHTH DROPS 5 ML OPTH ONE (09:02)
[2022-09-08] MEDS ORDERED: TIMOLOL 0.5% OPHTH DROPS OPTH ONE (09:03)
[2022-09-08] MEDS ORDERED: BSS/LIDOCAINE/EPINEPHRINE 1 ML SYRINGE IO ONE (09:03)
[2022-09-08] MEDS ORDERED: EPINEPHrine 1 MG/ML AMP IR ONE (09:03)
[2022-09-08] MEDS ORDERED: PROPARACAINE 0.5% OPHTH DROPS 15 ML EACHEYE ONE (09:04)
[2022-09-08] MEDS ORDERED: VANCOMYCIN OPHTH (TOPICAL) 10 MG/ML SYRINGE TOP ONE (09:04)
--- NOTE | 2022-09-08 09:40 | OPERATIVE REPORT ---
Operative Report - Other Other Information/Narrative: Date of Surgery: 09/08/22 Preop Dx: Visually significant cataract left eye. Cataract surgery was performed in the right eye on [id number]. Postop Dx: Same Procedure: Phacoemulsification with posterior chamber intraocular lens implant left eye Surgeon: Dr. Bony Mccullough Anesthesia: Monitored anesthesia care Complications: None Operative Indications: This is a 81-year-old M with progressive vision loss in the left eye due to 3+ nuclear sclerotic and vacuolar cataract. Best corrected visual acuity was 20/25 with glare to 20/200 vision in the left eye. Indications for surgery were: - Overall decrease in vision - Difficulty seeing words on a computer screen - Difficulty reading - Difficulty seeing words, closed captions, or game scores on TV - Difficulty seeing street signs - Difficulty driving in low light or at night - Difficulty driving at night because of headlights from other vehicles - Difficulty with glare or bright lights in any situation The patient was consented at length concerning the risks and benefits of cataract surgery after which the patient expressed a desire to proceed with surgery. Operative Procedure: The patient was taken into OR#3 and placed under monitored anesthesia care. A surgical time-out was conducted confirming correct patient, correct procedure, and correct surgical site. The patient was given topical anesthesia and then prepped and draped in the usual sterile fashion. The eye was entered at the 6 and 3 oclock positions. Intracameral Shugarcaine was injected into the anterior chamber followed by a dispersive viscoelastic. A continuous-tear curvilinear capsulorhexis was performed. The nucleus was hydrodissected and phacoemulsified. The cortex was evacuated using automated infusion and aspiration. A cohesive viscoelastic was injected into the capsular bag and a 24.0 diopter intraocular lens was inserted into the bag. Infusion and aspiration were used to evacuate the viscoelastic materials from the eye. The wounds were hydrated and the eye inflated to physiologic pressure using balanced salt solution. Approximately 0.25ml of a mixture of triamcinolone and moxifloxacin was injected trans-sclerally into the vitreous in the inferotemporal quadrant using a 30 gauge cannula. An additional 0.25ml of a mixture of triamcinolone and moxifloxacin was injected subconjunctivally in the superior quadrant for infection and inflammation prophylaxis. Wound integrity was checked with Weck-Sheila sponges. The patient was taken from the operating room in good condition and given post-op instructions.
[2022-09-08 10:22] VITALS: BP 124/60
--- NOTE | 2022-09-08 10:26 | ANESTHESIA POST OP EVALUATION ---
Anesthesia Post Eval - Post Anesthesia Eval Vitals: Last Vital Signs Temp 36.4 C L 09/08/22 10:05 Pulse 60 09/08/22 10:05 Resp 16 09/08/22 10:05 BP 124/60 09/08/22 10:05 Pulse Ox 97 09/08/22 10:05 O2 Flow Rate 0 09/08/22 08:10 CV Function Including HR & BP: Stable Pain Control: Satisfactory Nausea & Vomiting: Negative Mental Status: Baseline Respiratory Status: Airway Patent Hydration Status: Satisfactory Anesthesia Complications: None
== END 2022-09-08 07:54 | disposition home or self-care (01) ==
LOC: SDS 07:53
PROVIDERS: ATTEND Ophthalmology
DX: H25.12 Age-related nuclear cataract, left eye (principal); I25.2 Old myocardial infarction; G47.33 Obstructive sleep apnea (adult) (pediatric); E66.9 Obesity, unspecified; Z68.32 Body mass index [BMI] 32.0-32.9, adult; N40.0 Benign prostatic hyperplasia without lower urinary tract symptoms; Z98.41 Cataract extraction status, right eye; Z79.899 Other long term (current) drug therapy
CPT/HCPCS: 66984; A9270; J3490; J7120; V2632

== ENCOUNTER 2022-11-01 08:50 | Outpatient (CLI) | payer MEDICARE ==
[2022-11-01 11:49] LABS: BASOPHILS % (AUTO) 0.5 %; EOSINOPHILS # (AUTO) 0.2 10^3/uL (0.0-0.7); EOSINOPHILS % (AUTO) 2.4 %; HCT - HEMATOCRIT 43.2 % (42.0-52.0); HGB - HEMOGLOBIN 13.7 g/dL (14.0-18.0); LYMPHOCYTES # (AUTO) 1.5 10^3/uL (1.5-3.5); LYMPHOCYTES % (AUTO) 23.8 %; MEAN CORPUSCULAR HEMOGLOBIN 28.7 pg (27.0-31.0); MEAN CORPUSCULAR HGB CONC 31.7 g/dL (32.0-36.0); MEAN CORPUSCULAR VOLUME 90.6 fL (80.0-94.0); MONOCYTES # (AUTO) 0.7 10^3/uL (0.0-1.0); MONOCYTES % (AUTO) 11.2 %; NEUTROPHILS # (AUTO) 3.8 10^3/uL (1.5-6.6); NEUTROPHILS % (AUTO) 61.8 %; PLT - PLATELET COUNT 171 10^3/uL (130-450); RED BLOOD COUNT 4.77 10^6/uL (4.70-6.10); RED CELL DISTRIBUTION WIDTH 13.5 % (12.0-15.0); WHITE BLOOD COUNT 6.2 x10^3/uL (4.8-10.8)
[2022-11-01 12:35] LABS: ALBUMIN 3.8 g/dL (3.2-5.5); ALBUMIN/GLOBULIN RATIO 1.3 (1.0-2.2); ALKALINE PHOSPHATASE 54 IU/L (42-121); ALT ALANINE AMINOTRANSFERASE 22 IU/L (10-60); AST ASPARTATE AMINOTRANSFERASE 25 IU/L (10-42); BUN - BLOOD UREA NITROGEN 14 mg/dL (6-20); CALCIUM 9.3 mg/dL (8.5-10.3); CARBON DIOXIDE - CO2 26 mmol/L (21-32); CHLORIDE 107 mmol/L (101-111); CHOL/HDL RATIO 2.6 (<5.0); CHOLESTEROL 66 mg/dL; CREATININE 1.2 mg/dL (0.6-1.2); GFR - MDRD 58 (>89); GLUCOSE 113 mg/dL (70-100); HDL CHOLESTEROL 25 mg/dL; LDL CHOLESTEROL,CALCULATED 21 mg/dL; LDL/HDL RATIO 0.8 (<3.6); POTASSIUM 4.2 mmol/L (3.5-5.0); SODIUM 137 mmol/L (135-145); TOTAL PROTEIN 6.8 g/dL (6.7-8.2); TRIGLYCERIDES 98 mg/dL; VLDL CHOLESTEROL 20 mg/dL
[2022-11-01 12:54] LABS: THYROID STIMULATING HORMONE 2.49 uIU/mL (0.34-5.60)
[2022-11-01 13:38] LABS: ESTIMATED AVERAGE GLUCOSE 120 mg/dL (70-100); HEMOGLOBIN A1c% 5.8 % (4.27-6.07)
== END 2022-11-01 08:51 | disposition home or self-care (01) ==
LOC: LAB.N 08:50
PROVIDERS: ATTEND Internal Medicine
DX: I25.10 Atherosclerotic heart disease of native coronary artery without angina pectoris (principal); R73.01 Impaired fasting glucose
CPT/HCPCS: 36415; 80053; 80061; 83036; 83721; 84443; 85025

== ENCOUNTER 2023-02-02 08:00 | Outpatient (CLI) | payer MEDICARE | END 2023-02-02 23:59 | disposition home or self-care (01) | LOC: LAB.N 08:00 | PROVIDERS: ATTEND Specialist | DX: U07.1 COVID-19 (principal) ==

== ENCOUNTER 2023-02-13 10:04 | Outpatient (CLI) | payer MEDICARE ==
--- NOTE | 2023-03-02 13:42 | SLEEP CARE CONSULTATION ---
Information from patient questionnaire entered by Daya Moody. I have reviewed and concur with the information entered by Daya Moody. This document represents the service I personally performed and the decisions made by me, Chuckie Samuel MD, [facility]. History of Present Illness Service Date and Time: 02/13/2023 1004 Previous diagnosis: Moderate, Obstructive Sleep Apnea-Hypopnea Syndrome AHI: 21 (in 2003) Reason for follow up: annual (LAST SEEN 11/2020) Equipment type: CPAP Equipment obtained from: [facility] Mask style: Nasal Prior sleep studies: Yes Year and Where: 2003 - Te with Dr. Redmond Type of Sleep Study: Polysomnography HPI additional information: Mr. Swift was diagnosed to have moderate obstructive sleep apnea-hypopnea syndrome and returns today for annual follow up of CPAP therapy. The patient gets his supplies from [facility]. He wears a Respironics DreamWear nasal pillows. He uses the device nightly and all through the night. The compliance report shows that he uses the device 365 nights out of the past 365 nights, averaging 8.3 hours a night. He complains of no particular problem with the device such as soreness on the face, dry nose, epistaxis, nasal congestion or headache. He thinks that the pressure of 5 - 7 cmH2O is comfortable. On the CPAP therapy he notices improvement in his sleep quality, and that he wakes up feeling fresher in the morning and more awake/alert during the day. His notices no snore at all. Weather[place] Sleepiness Scale score is 4. The average residual AHI is 0.9; and average air leak is 3.9 L/minute. The 90th percentile pressure is 7 cmH2O. Sleep Study - Results Type of Sleep Study: Polysomnography Prior sleep studies: Yes Year and Where: 2003 - Te with Dr. Redmond CPAP Compliance Data - Data Reviewed with Patient Average duration of nightly device use: 8HRS 9MIN Compliance rate %: 100 (08/14/22-) Current pressure setting (cmH2O): 5-7 Average residual AHI: 1.0 Subjective Initial Weather[place] Sleepiness Scale score: 6 (in 2019) Current Weather[place] Sleepiness Scale score: 4 (02/13/23) Allergies and Home Medications Allergy and home medication list: Allergies No Known Drug Allergies Allergy (Verified 02/10/23 09:27) Review of Systems Review of systems same as previous: Yes Physical Exam Vital signs obtained and entered by: DAYA Conte MA Blood Pressure: 88/42 (LEFT ARM) Cuff size: regular Heart Rate: 71 O2 Saturation: 98 Height: 6 ft Weight: 231 lb 9.6 oz Body Mass Index: 31.4 BMI Classification: Obese Impression and Plan IMPRESSION: 1. Obstructive Sleep Apnea-Hypopnea Syndrome, moderate (AHI was 21) with the patient continuing to do well on nasal CPAP therapy. He has excellent compliance and significant clinical benefits. The current pressure appears effective and comfortable. Overall, he is very satisfied with the treatment and plans to continue with it long-term. No adjustment is necessary today. PLAN: 1. Continue with autoCPAP set at 5 - 7 cm H2O. 2. Try to lose weight 3. Return in one year for follow up or earlier if there is any problem with the treatment. Follow up with Sleep Care in: 1 year Visit Type: In Office Time Spent with Patient (minutes): 15 Provider Statement: I spent 100% of the Face to Face Visit with the patient with greater than 50% spent counseling the patient and coordination of care.
[2023-03-02 13:49] VITALS: BP 88/42
== END 2023-02-13 10:05 | disposition home or self-care (01) ==
LOC: SC 10:04
PROVIDERS: ATTEND Internal Medicine Pulmonary Disease
DX: G47.33 Obstructive sleep apnea (adult) (pediatric) (principal); E66.9 Obesity, unspecified; Z68.31 Body mass index [BMI] 31.0-31.9, adult
CPT/HCPCS: 99212; G0463

== ENCOUNTER 2023-08-30 09:27 | Outpatient (CLI) | payer MEDICARE ==
[2023-08-30 12:43] LABS: BASOPHILS # (AUTO) 0.1 10^3/uL (0.0-0.1); BASOPHILS % (AUTO) 0.7 %; EOSINOPHILS # (AUTO) 0.1 10^3/uL (0.0-0.7); EOSINOPHILS % (AUTO) 1.5 %; HCT - HEMATOCRIT 43.5 % (42.0-52.0); HGB - HEMOGLOBIN 13.8 g/dL (14.0-18.0); LYMPHOCYTES # (AUTO) 1.8 10^3/uL (1.5-3.5); MEAN CORPUSCULAR HEMOGLOBIN 28.9 pg (27.0-31.0); MEAN CORPUSCULAR HGB CONC 31.7 g/dL (32.0-36.0); MEAN CORPUSCULAR VOLUME 91.2 fL (80.0-94.0); MEAN PLATELET VOLUME 11.5 fL (7.4-11.4); MONOCYTES # (AUTO) 0.8 10^3/uL (0.0-1.0); MONOCYTES % (AUTO) 9.9 %; NEUTROPHILS # (AUTO) 5.4 10^3/uL (1.5-6.6); NEUTROPHILS % (AUTO) 65.4 %; PLT - PLATELET COUNT 179 10^3/uL (130-450); RED BLOOD COUNT 4.77 10^6/uL (4.70-6.10); RED CELL DISTRIBUTION WIDTH 13.2 % (12.0-15.0); WHITE BLOOD COUNT 8.2 x10^3/uL (4.8-10.8)
[2023-08-30 12:51] LABS: ALBUMIN 4.1 g/dL (3.2-5.5); ALBUMIN/GLOBULIN RATIO 1.4 (1.0-2.2); ALKALINE PHOSPHATASE 78 IU/L (42-121); ALT ALANINE AMINOTRANSFERASE 18 IU/L (10-60); AST ASPARTATE AMINOTRANSFERASE 22 IU/L (10-42); BILIRUBIN,TOTAL 1.4 mg/dL (0.2-1.0); BUN - BLOOD UREA NITROGEN 15 mg/dL (6-20); CALCIUM 9.8 mg/dL (8.5-10.3); CARBON DIOXIDE - CO2 24 mmol/L (21-32); CHLORIDE 106 mmol/L (101-111); CHOL/HDL RATIO 2.8 (<5.0); CHOLESTEROL 82 mg/dL; CREATININE 1.1 mg/dL (0.6-1.3); GFR - MDRD 64 (>89); GLUCOSE 111 mg/dL (74-104); HDL CHOLESTEROL 29 mg/dL; LDL CHOLESTEROL,CALCULATED 31 mg/dL; LDL/HDL RATIO 1.1 (<3.6); POTASSIUM 4.4 mmol/L (3.5-4.5); SODIUM 137 mmol/L (135-145); TOTAL PROTEIN 7.1 g/dL (6.4-8.9); TRIGLYCERIDES 108 mg/dL (48-352); VLDL CHOLESTEROL 22 mg/dL
[2023-08-30 12:53] LABS: ESTIMATED AVERAGE GLUCOSE 108 mg/dL (70-100); HEMOGLOBIN A1c% 5.4 % (4.27-6.07)
== END 2023-08-30 09:28 | disposition home or self-care (01) ==
LOC: LAB.N 09:27
PROVIDERS: ATTEND Internal Medicine
DX: E78.5 Hyperlipidemia, unspecified (principal); R73.01 Impaired fasting glucose; I25.10 Atherosclerotic heart disease of native coronary artery without angina pectoris
CPT/HCPCS: 36415; 80053; 80061; 83036; 83721; 85025

== ENCOUNTER 2024-04-15 11:36 | Outpatient (CLI) | payer MEDICARE ==
--- NOTE | 2024-04-15 12:42 | SLEEP CARE CONSULTATION ---
Information from patient questionnaire entered by Daya Moody. I have reviewed and concur with the information entered by Daya Moody. This document represents the service I personally performed and the decisions made by me, Chuckie Samuel MD, [facility]. History of Present Illness Service Date and Time: 04/15/2024 1136 Previous diagnosis: Moderate, Obstructive Sleep Apnea-Hypopnea Syndrome AHI: 21 (in 2003) Reason for follow up: annual (LAST SEEN 02/2023) Equipment type: CPAP Equipment obtained from: [facility] Mask style: Nasal Prior sleep studies: Yes Year and Where: 2003 - Te with Dr. Redmond Type of Sleep Study: Polysomnography HPI additional information: Mr. Swift was diagnosed to have moderate obstructive sleep apnea-hypopnea syndrome and returns today for annual follow up of CPAP therapy. The patient gets his supplies from [facility]. He wears a Respironics DreamWear nasal pillows. He uses the device nightly and all through the night. The compliance report shows that he uses the device 364 nights out of the past 365 nights, averaging 7.9 hours a night. He complains of no particular problem with the device such as soreness on the face, dry nose, epistaxis, nasal congestion or headache. He thinks that the pressure of 5 - 7 cmH2O is comfortable. On the CPAP therapy he notices improvement in his sleep quality, and that he wakes up feeling fresher in the morning and more awake/alert during the day. Becket Sleepiness Scale score is 7. The average residual AHI is 1.0; and average air leak is 5.5 L/minute. The 90th percentile pressure is 7 cmH2O. Sleep Study - Results Type of Sleep Study: Polysomnography Prior sleep studies: Yes Year and Where: 2003 - Te with Dr. Redmond CPAP Compliance Data - Data Reviewed with Patient Average duration of nightly device use: 7HRS 51MINS Compliance rate %: 100 (04/13/23-04/11/24) Current pressure setting (cmH2O): 5-7 Average residual AHI: 1.0 Subjective Current pressure setting perceived as: comfortable Initial Becket Sleepiness Scale score: 6 (in 2019) Current Becket Sleepiness Scale score: 7 (04/15/24) Allergies and Home Medications Drug allergies reviewed: Yes Home medication list reviewed: Yes Allergy and home medication list: Allergies No Known Drug Allergies Allergy (Verified 04/15/24 11:41) Review of Systems Review of systems same as previous: Yes (NO CHANGE) Physical Exam Vital signs obtained and entered by: DAYA Conte MA Blood Pressure: 127/70 (RIGHT ARM) Cuff size: regular Heart Rate: 50 O2 Saturation: 98 Height: 6 ft Weight: 232 lb Body Mass Index: 31.4 BMI Classification: Obese Impression and Plan IMPRESSION: 1. Obstructive Sleep Apnea-Hypopnea Syndrome, moderate (AHI was 21) with the patient continuing to do well on nasal CPAP therapy. He has excellent compliance and significant clinical benefits. The current pressure appears effective and comfortable. Overall, he is very satisfied with the treatment and plans to continue with it long-term. No adjustment is necessary today. PLAN: 1. Continue with autoCPAP set at 5 - 7 cm H2O. 2. Try to lose weight 3. Return in one year for follow up or earlier if there is any problem with the treatment. Follow up with Sleep Care in: 1 year Visit Type: In Office Time Spent with Patient (minutes): 15 Provider Statement: I spent 100% of the Face to Face Visit with the patient with greater than 50% spent counseling the patient and coordination of care.
[2024-04-15 12:46] VITALS: BP 127/70; O2SAT 98
== END 2024-04-15 11:37 | disposition home or self-care (01) ==
LOC: SC 11:36
PROVIDERS: ATTEND Internal Medicine Pulmonary Disease
DX: G47.33 Obstructive sleep apnea (adult) (pediatric) (principal); E66.9 Obesity, unspecified; Z68.31 Body mass index [BMI] 31.0-31.9, adult
CPT/HCPCS: 99212; G0463